=== PATIENT | female | born 1985 | race Caucasian/White ===

== ENCOUNTER 2018-05-20 07:52 | Inpatient (IN) | payer OTHER ==
[2018-05-20] MEDS: HYDROCODONE/APAP (5/325) TAB PO ×2 (08:16→23:47)
[2018-05-20] MEDS: ONDANSETRON (ODT) 4 MG TAB ODT (08:16)
[2018-05-20 08:38] LABS: ADD UMIC YES; UR ASCORBIC ACID NEGATIVE (NEGATIVE); UR BACTERIA FEW /HPF (NONE SEEN); UR BILIRUBIN (Dip) NEGATIVE (NEGATIVE); UR BLOOD (Dip) 3+ mg/dL (NEGATIVE); UR CLARITY SLIGHTLY CLOUDY (CLEAR); UR COLOR AMBER (YELLOW); UR GLUCOSE (Dip) NEGATIVE (NEGATIVE); UR KETONES (Dip) NEGATIVE (NEGATIVE); UR LEUKOCYTE ESTERASE (Dip) NEGATIVE Leu/ul (NEGATIVE); UR MUCUS FEW /HPF (NONE SEEN); UR NITRITE (Dip) POSITIVE (NEGATIVE); UR RBC > 182 /HPF (0-5); UR SPECIFIC GRAVITY (Dip) 1.018 (1.003-1.030); UR SQUAMOUS EPITHELIAL CELL MODERATE /HPF (FEW); UR TOTAL PROTEIN (Dip) 1+ mg/dl (NEGATIVE); UR UROBILINOGEN (Dip) 2+ mg/dL (NEGATIVE); UR WBC 15 /HPF (0-5)
[2018-05-20] MEDS: SOD CHLORIDE 0.9% 1,000 ML IV ×3 (08:56→22:54)
[2018-05-20] MEDS: KETOROLAC 30 MG INJ IV (08:57)
[2018-05-20] MEDS: CEFTRIAXONE 1 GM/50 ML (PMX) 50 ML IVPB (08:57)
[2018-05-20 09:12] LABS: ADD MAN DIFF? NO
[2018-05-20 09:13] LABS: BASOPHIL # 0.1 10^3/ul (0.0-0.1); BASOPHILS % 0.4 % (0.0-2.0); EOSINOPHILS # 0.1 10^3/ul (0.0-0.5); EOSINOPHILS % 0.3 % (0.0-7.0); HEMOGLOBIN 15.5 g/dl (12.0-16.0); LYMPHOCYTES # 1.9 10^3/ul (0.8-2.9); LYMPHOCYTES % 9.8 % (15.0-51.0); MEAN CORPUSCULAR HEMOGLOBIN 27.5 pg (29.0-33.0); MEAN CORPUSCULAR VOLUME 83.3 fl (82.0-101.0); MEAN PLATELET VOLUME 9.4 fl (7.4-10.4); MONOCYTE # 0.9 10^3/ul (0.3-0.9); MONOCYTES % 4.7 % (0.0-11.0); NEUTROPHIL # 16.4 10^3/ul (1.6-7.5); NEUTROPHILS % 84.2 % (39.0-77.0); PLATELET COUNT 277 10^3/UL (140-415); RED BLOOD COUNT 5.64 10^6/ul (4.20-5.40)
[2018-05-20 09:13] LABS: WHITE BLOOD COUNT 19.4 10^3/ul (4.8-10.8)
[2018-05-20 09:51] LABS: ALANINE AMINOTRANSFERASE 22 IU/L (13-69); ALBUMIN 4.8 g/dl (3.3-4.9); ALKALINE PHOSPHATASE 93 IU/L (42-121); ANION GAP 12 (5-13); ASPARTATE AMINO TRANSFERASE 24 IU/L (15-46); BILIRUBIN,INDIRECT 0.7 mg/dl (0-1.1); BILIRUBIN,TOTAL 0.7 mg/dl (0.2-1.3); BLOOD UREA NITROGEN 8 mg/dl (7-20); CALCIUM 9.6 mg/dl (8.4-10.2); CARBON DIOXIDE 26 mmol/L (21-31); CHLORIDE 102 mmol/L (97-110); CREATININE 0.62 mg/dl (0.44-1.00); Estimated GFR > 60 mL/min (>60); GLUCOSE 103 mg/dl (70-220); LIPASE 81 U/L (23-300); POTASSIUM 3.4 mmol/L (3.5-5.1); SODIUM 140 mmol/L (135-144); TOTAL PROTEIN 7.8 g/dl (6.1-8.1)
[2018-05-20] MEDS ORDERED: hydrALAzine 20 MG INJ IV (11:30)
[2018-05-20] MEDS ORDERED: ALBUTEROL/IPRATROPIUM (NEB) 3 ML AMP HHN (11:30)
[2018-05-20] MEDS ORDERED: DOCUSATE SODIUM 100 MG CAP PO (11:30)
[2018-05-20] MEDS ORDERED: NITROGLYCERIN (SL) 0.4 MG TAB SL (11:30)
[2018-05-20] MEDS ORDERED: LORAZEPAM 2 MG INJ IV (11:30)
[2018-05-20] MEDS ORDERED: ONDANSETRON 4 MG INJ IV ×2 (11:30)
[2018-05-20] MEDS ORDERED: NACL 0.9% 3 ML SYG IV (11:30)
[2018-05-20 12:23] LABS: INR 0.91; PROTIME 12.4 Sec (11.9-14.9)
[2018-05-20 12:45] LABS: FREE T4 (FREE THYROXINE) 0.88 ng/dl (0.79-2.35)
[2018-05-20] MEDS: ACETAMINOPHEN 325 MG TAB PO (16:03)
[2018-05-20 20:19] LABS: INR 0.89; PROTIME 12.1 Sec (11.9-14.9); PT RATIO 0.9
[2018-05-20 20:20] LABS: PARTIAL THROMBOPLASTIN TIME 26.2 Sec (23.0-35.0)
[2018-05-20] MEDS: HEPARIN 5,000 UNIT/1 ML VIAL SC (20:43)
[2018-05-20] MEDS: TAMSULOSIN (SR) 0.4 MG CAP PO (20:44)
[2018-05-21] MEDS: ACETAMINOPHEN 325 MG TAB PO ×2 (03:37→17:09)
[2018-05-21 05:23] LABS: ADD MAN DIFF? NO
[2018-05-21 05:28] LABS: BASOPHILS % 0.2 % (0.0-2.0); EOSINOPHILS # 0.1 10^3/ul (0.0-0.5); EOSINOPHILS % 0.6 % (0.0-7.0); HEMOGLOBIN 12.6 g/dl (12.0-16.0); LYMPHOCYTES # 2.5 10^3/ul (0.8-2.9); LYMPHOCYTES % 20.8 % (15.0-51.0); MEAN CORPUSCULAR HEMOGLOBIN 27.9 pg (29.0-33.0); MEAN CORPUSCULAR HGB CONC 33.2 g/dl (32.0-37.0); MEAN CORPUSCULAR VOLUME 84.1 fl (82.0-101.0); MEAN PLATELET VOLUME 9.7 fl (7.4-10.4); MONOCYTE # 0.7 10^3/ul (0.3-0.9); MONOCYTES % 6.1 % (0.0-11.0); NEUTROPHIL # 8.7 10^3/ul (1.6-7.5); PLATELET COUNT 213 10^3/UL (140-415); RED BLOOD COUNT 4.52 10^6/ul (4.20-5.40); RED CELL DISTRIBUTION WIDTH 12.2 % (11.5-14.5)
[2018-05-21 05:59] LABS: CHOLESTEROL 144 mg/dl (100-200)
[2018-05-21 05:59] LABS: CHOL/HDL RATIO 2.4 RATIO; HDL CHOLESTEROL 58 mg/dl (34-82); LDL CHOLESTEROL,CALCULATED 53 mg/dl; TRIGLYCERIDES 166 mg/dl (0-149)
[2018-05-21 06:15] LABS: ANION GAP 9 (5-13); BLOOD UREA NITROGEN 7 mg/dl (7-20); CALCIUM 8.8 mg/dl (8.4-10.2); CARBON DIOXIDE 24 mmol/L (21-31); CHLORIDE 108 mmol/L (97-110); CREATININE 0.59 mg/dl (0.44-1.00); Estimated GFR > 60 mL/min (>60); GLUCOSE 89 mg/dl (70-220); PHOSPHORUS 3.5 mg/dl (2.5-4.9); POTASSIUM 3.9 mmol/L (3.5-5.1); SODIUM 141 mmol/L (135-144)
[2018-05-21] MEDS: SOD CHLORIDE 0.9% 1,000 ML IV ×2 (07:14→17:14)
[2018-05-21] MEDS: CEFTRIAXONE 1 GM/50 ML (PMX) 50 ML IVPB (08:41)
[2018-05-21] MEDS: HEPARIN 5,000 UNIT/1 ML VIAL SC ×2 (08:44→20:46)
[2018-05-21] MEDS: morphine 2 MG INJ IV (10:36)
[2018-05-21] MEDS: HYDROCODONE/APAP (5/325) TAB PO ×2 (14:13→20:46)
[2018-05-21] MEDS: TAMSULOSIN (SR) 0.4 MG CAP PO (20:46)
[2018-05-22] MEDS: SOD CHLORIDE 0.9% 1,000 ML IV ×6 (03:14→23:14)
[2018-05-22 05:18] LABS: ADD MAN DIFF? NO
[2018-05-22 05:31] LABS: WHITE BLOOD COUNT 10.2 10^3/ul (4.8-10.8)
[2018-05-22 05:31] LABS: BASOPHILS % 0.3 % (0.0-2.0); EOSINOPHILS # 0.1 10^3/ul (0.0-0.5); EOSINOPHILS % 1.3 % (0.0-7.0); HEMATOCRIT 36.1 % (37.0-47.0); HEMOGLOBIN 12.1 g/dl (12.0-16.0); LYMPHOCYTES # 3.2 10^3/ul (0.8-2.9); LYMPHOCYTES % 30.9 % (15.0-51.0); MEAN CORPUSCULAR HEMOGLOBIN 28.1 pg (29.0-33.0); MEAN CORPUSCULAR HGB CONC 33.5 g/dl (32.0-37.0); MEAN PLATELET VOLUME 9.4 fl (7.4-10.4); MONOCYTE # 0.6 10^3/ul (0.3-0.9); NEUTROPHIL # 6.3 10^3/ul (1.6-7.5); NEUTROPHILS % 61.1 % (39.0-77.0); PLATELET COUNT 224 10^3/UL (140-415); RED CELL DISTRIBUTION WIDTH 11.9 % (11.5-14.5)
[2018-05-22 05:57] LABS: ANION GAP 5 (5-13); BLOOD UREA NITROGEN 5 mg/dl (7-20); CALCIUM 8.6 mg/dl (8.4-10.2); CARBON DIOXIDE 26 mmol/L (21-31); CHLORIDE 111 mmol/L (97-110); CREATININE 0.48 mg/dl (0.44-1.00); Estimated GFR > 60 mL/min (>60); GLUCOSE 86 mg/dl (70-220); POTASSIUM 3.4 mmol/L (3.5-5.1); SODIUM 142 mmol/L (135-144)
[2018-05-22] MEDS ORDERED: DESFLURANE 15 MIN (07:00)
[2018-05-22] MEDS: CEFTRIAXONE 1 GM/50 ML (PMX) 50 ML IVPB (08:59)
[2018-05-22] MEDS: POTASSIUM CHLORIDE (SR) 20 MEQ TAB PO (08:59)
[2018-05-22] MEDS ORDERED: PROPOFOL 20 ML (17:12)
[2018-05-22] MEDS ORDERED: METOCLOPRAMIDE 10 MG INJ (17:13)
[2018-05-22] MEDS ORDERED: ONDANSETRON 4 MG INJ (17:13)
[2018-05-22] MEDS ORDERED: FENTAnyl 50 MCG/ML VIAL (17:13)
[2018-05-22] MEDS ORDERED: MIDAZOLAM 1 MG/ML 2 ML INJ (17:13)
[2018-05-22] MEDS ORDERED: MEPERIDINE 25 MG INJ IV (17:30)
[2018-05-22] MEDS ORDERED: DIPHENHYDRAMINE 50 MG INJ IV (17:30)
[2018-05-22] MEDS ORDERED: HYDROmorphONE 1 MG/5 ML IV SYRINGE IV ×3 (17:30)
[2018-05-22] MEDS ORDERED: FENTAnyl 50 MCG/ML VIAL IV ×3 (17:30)
[2018-05-22] MEDS ORDERED: ONDANSETRON 4 MG INJ IV (17:30)
[2018-05-22] MEDS ORDERED: CEFAZOLIN 1 GM INJ (17:39)
[2018-05-22] MEDS ORDERED: IOHEXOL 300MG/ML 30 ML BTL (17:51)
[2018-05-22] MEDS: MAGNESIUM HYDROXIDE 30ML CUP PO (21:48)
[2018-05-23 05:44] LABS: ADD MAN DIFF? NO
[2018-05-23 05:45] LABS: WHITE BLOOD COUNT 8.9 10^3/ul (4.8-10.8)
[2018-05-23 05:45] LABS: BASOPHILS % 0.4 % (0.0-2.0); EOSINOPHILS # 0.2 10^3/ul (0.0-0.5); EOSINOPHILS % 1.9 % (0.0-7.0); HEMATOCRIT 37.9 % (37.0-47.0); HEMOGLOBIN 12.5 g/dl (12.0-16.0); LYMPHOCYTES # 3.1 10^3/ul (0.8-2.9); LYMPHOCYTES % 34.4 % (15.0-51.0); MEAN CORPUSCULAR HEMOGLOBIN 27.4 pg (29.0-33.0); MEAN CORPUSCULAR VOLUME 82.9 fl (82.0-101.0); MEAN PLATELET VOLUME 9.4 fl (7.4-10.4); MONOCYTE # 0.6 10^3/ul (0.3-0.9); MONOCYTES % 6.7 % (0.0-11.0); NEUTROPHILS % 56.4 % (39.0-77.0); PLATELET COUNT 252 10^3/UL (140-415); RED BLOOD COUNT 4.57 10^6/ul (4.20-5.40)
[2018-05-23] MEDS: SOD CHLORIDE 0.9% 1,000 ML IV ×2 (06:05→09:14)
[2018-05-23 06:27] LABS: ANION GAP 6 (5-13); BLOOD UREA NITROGEN 9 mg/dl (7-20); CALCIUM 8.6 mg/dl (8.4-10.2); CARBON DIOXIDE 26 mmol/L (21-31); CHLORIDE 108 mmol/L (97-110); CREATININE 0.48 mg/dl (0.44-1.00); Estimated GFR > 60 mL/min (>60); GLUCOSE 82 mg/dl (70-220); POTASSIUM 3.9 mmol/L (3.5-5.1); SODIUM 140 mmol/L (135-144)
[2018-05-23] MEDS: CEFTRIAXONE 1 GM/50 ML (PMX) 50 ML IVPB (08:49)
== END 2018-05-23 12:25 | disposition home or self-care (01) | DRG 661 ==
LOC: FTE 07:52 → 2NE 11:13
PROC: 0TC68ZZ Extirpation of Matter from Right Ureter, Via Natural or Artificial Opening Endoscopic (ICD-10-PCS; principal; 2018-05-22 17:30)
PROC: 0T768DZ Dilation of Right Ureter with Intraluminal Device, Via Natural or Artificial Opening Endoscopic (ICD-10-PCS; 2018-05-22 17:30)
DX: N13.6 Pyonephrosis (principal); D64.9 Anemia, unspecified; I10 Essential (primary) hypertension; E78.1 Pure hyperglyceridemia
CPT/HCPCS: 36415; 74018; 74176; 74430; 80048; 80053; 80061; 81001; 81025; 83036; 83690; 83735; 84100; 84439; 84443; 84703; 85025; 85610; 85730; 87086; 88300; 96365; 96375; 99285-25